=== PATIENT | male | born 1985 | race African-American/Black ===

== ENCOUNTER 2019-01-03 17:59 | Emergency (ER) | payer MEDICAID ==
[~2019-01-03] VITALS: Ht 188 cm; Wt 99.8 kg
[2019-01-03 18:00] VITALS: BP 173/101
[2019-01-03] MEDS ORDERED: cloNIDine HCL 0.1 MG TAB ONE (18:06)
[2019-01-03] MEDS ORDERED: cloNIDine HCL 0.1 MG TAB PO ONE (18:15)
[2019-01-03 18:59] LABS: Chloride 106 mmol/L (98-107); Potassium 3.7 mmol/L (3.5-5.1); Sodium 141 mmol/L (136-145)
[2019-01-03 19:01] LABS: Albumin 3.2 g/dL (3.4-5.0); Anion Gap 7 (5-15); Blood Urea Nitrogen 9 mg/dL (7-18); Calcium 8.3 mg/dL (8.5-10.1); Carbon Dioxide 28 mmol/L (21-32); Glucose 84 mg/dL (74-106)
[2019-01-03 19:02] LABS: Basophils # (auto) 0.1 uL; Basophils % (auto) 0.7 % (0.0-2.0); Eosinophils # (auto) 0.1 uL; Hemoglobin 14.3 g/dL (13.5-17.5); Monocytes # (auto) 0.5 uL; Neutrophils # (auto) 5.2 uL; Nucleated Red Blood Cells % 0.1 %; Red Blood Cells 5.38 10^6/uL (4.5-5.90)
[2019-01-03 19:04] LABS: Alanine Aminotransferase 22 U/L (16-61); Aspartate Aminotransferase 18 U/L (15-37); BUN/Creatinine Ratio 7.5; Eosinophils % (auto) 1.3 % (0.0-7.0); GFR African American 91 mL/min; GFR Non-African American 75 mL/min; Hematocrit 44.6 % (41.0-53.0); Lymphocytes # (auto) 2.6 uL; Mean Corpuscular Hemoglobin 26.6 pg (28.0-32.0); Mean Corpuscular Hgb Conc. 32.1 g/dL (32.0-36.0); Mean Corpuscular Volume 82.9 fL (80.0-100.0); Monocytes % (auto) 6.4 % (0.0-12.0); Neutrophils % (auto) 60.6 % (37.0-80.0); Platelet Count (auto) 218 10^3/uL (140-450); Red Cell Distribution Width 15.6 % (11.8-14.3); White Blood Cell 8.5 10^3/uL (4.4-10.8)
[2019-01-03 19:07] LABS: Alkaline Phosphatase 76 U/L (45-117); Bilirubin, Total 0.4 mg/dL (0.2-1.0); Total Protein 8.8 g/dL (6.4-8.2)
== END 2019-01-04 01:11 | disposition left against medical advice (07) ==
LOC: ER 18:02
DX: R06.02 Shortness of breath (principal); Z53.21 Procedure and treatment not carried out due to patient leaving prior to being seen by health care provider
CPT/HCPCS: 36415; 80053; 83735; 84484; 85025

== ENCOUNTER 2023-02-17 20:17 | Emergency (ER) | payer SELFPAY ==
[~2023-02-17] VITALS: Ht 188 cm; Wt 109.0 kg
[2023-02-17 20:28] VITALS: BP 173/101; RESP 16; O2SAT 98
[2023-02-17 20:42] VITALS: PULSE 57
[2023-02-17] MEDS ORDERED: LORazepam 0.5 MG TAB PO ONE (20:45)
[2023-02-17 22:00] LABS: Basophils # (auto) 0.1 10 ^3/uL (0-0.2); Basophils % (auto) 0.7 % (0.0-2.0); Eosinophils # (auto) 0.1 10 ^3/uL (0-0.8); Eosinophils % (auto) 0.4 % (0.0-7.0); Hematocrit 47.9 % (41.0-53.0); Hemoglobin 15.7 g/dL (13.5-17.5); Lymphocytes % (auto) 16.8 % (10.0-50.0); Mean Corpuscular Hemoglobin 26.6 pg (28.0-32.0); Mean Corpuscular Hgb Conc. 32.8 g/dL (32.0-36.0); Mean Corpuscular Volume 81.3 fL (80.0-100.0); Monocytes # (auto) 0.5 10 ^3/uL (0-1.3); Monocytes % (auto) 4.6 % (0.0-12.0); Neutrophils # (auto) 9.2 10 ^3/uL (1.6-8.6); Neutrophils % (auto) 77.5 % (37.0-80.0); Nucleated Red Blood Cells % 0.1 %; Red Blood Cells 5.89 10^6/uL (4.5-5.90); Red Cell Distribution Width 15.3 % (11.8-14.3); White Blood Cell 11.9 10^3/uL (4.4-10.8)
[2023-02-17 22:38] LABS: Albumin 3.8 g/dL (3.4-5.0); Potassium 3.7 mmol/L (3.5-5.1)
[2023-02-17 22:51] LABS: BUN/Creatinine Ratio 9.2 (10.0-20.0); Bilirubin, Total 0.4 mg/dL (0.2-1.0); Total Protein 9.6 g/dL (6.4-8.2)
== END 2023-02-26 10:46 | disposition left against medical advice (07) ==
LOC: EDBD 20:17 → ER 20:32
DX: G35 Multiple sclerosis (principal); F41.0 Panic disorder [episodic paroxysmal anxiety]
CPT/HCPCS: 36415; 70450; 71045; 80053; 84484; 85025; 93005